=== PATIENT | female | born 2000 | race Caucasian/White ===

== ENCOUNTER 2024-09-06 23:03 | Emergency (ER) | payer BC, MEDICAID ==
[2024-09-07] MEDS ORDERED: Lidocaine 1% 10 ML MDV INJECT ONE (00:28)
== END 2024-09-07 01:16 | disposition home or self-care (01) ==
LOC: JD.ED 23:03
DX: S61.211A Laceration without foreign body of left index finger without damage to nail, initial encounter (principal); W26.0XXA Contact with knife, initial encounter
CPT/HCPCS: 12001; 99282